=== PATIENT | female | born 1960 | race Caucasian/White ===

== ENCOUNTER 2021-07-31 14:44 | Emergency (ER) | payer OTHER ==
[~2021-07-31] VITALS: Ht 157.5 cm; Wt 81.7 kg
[2021-07-31] MEDS ORDERED: ATOR40TA PO (15:04)
[2021-07-31] MEDS ORDERED: ROPI1 PO (15:05)
[2021-07-31] MEDS ORDERED: DILT180 (15:06)
[2021-07-31] MEDS ORDERED: METO2.5 PO (15:06)
== END 2021-07-31 16:22 | disposition home or self-care (01) ==
LOC: ER 14:44
DX: M25.512 Pain in left shoulder (principal); E78.5 Hyperlipidemia, unspecified; Z91.018 Allergy to other foods; Z79.899 Other long term (current) drug therapy
CPT/HCPCS: 73010; 99283-25